=== PATIENT | male | born 1945 | race Caucasian/White ===

== ENCOUNTER 2017-05-19 08:00 | Outpatient (CLI) | payer MEDICARE ==
[2017-05-19 19:02] LABS: BASOPHILS # (AUTO) 0.1 10^3/uL (0.0-0.1); EOSINOPHILS # (AUTO) 0.3 10^3/uL (0.0-0.7); EOSINOPHILS % (AUTO) 3.8 %; HCT - HEMATOCRIT 40.3 % (42.0-52.0); HGB - HEMOGLOBIN 13.6 g/dL (14.0-18.0); MEAN CORPUSCULAR HEMOGLOBIN 31.9 pg (27.0-31.0); MEAN CORPUSCULAR HGB CONC 33.6 g/dL (32.0-36.0); MEAN CORPUSCULAR VOLUME 94.9 fL (80.0-94.0); MEAN PLATELET VOLUME 8.8 fL (7.4-11.4); MONOCYTES # (AUTO) 0.7 10^3/uL (0.0-1.0); MONOCYTES % (AUTO) 7.1 %; NEUTROPHILS # (AUTO) 7.1 10^3/uL (1.5-6.6); NEUTROPHILS % (AUTO) 77.1 %; RED BLOOD COUNT 4.25 10^6/uL (4.70-6.10); RED CELL DISTRIBUTION WIDTH 14.2 % (12.0-15.0); UNCORRECTED WHITE BLOOD COUNT 9.2 x10^3/uL; WHITE BLOOD COUNT 9.2 x10^3/uL (4.8-10.8)
[2017-05-19 19:24] LABS: ALBUMIN/GLOBULIN RATIO 1.3 (1.0-2.2); BILIRUBIN,TOTAL 0.5 mg/dL (0.2-1.0); CREATININE 0.9 mg/dL (0.6-1.2); POTASSIUM 3.7 mmol/L (3.5-5.0); TOTAL PROTEIN 6.8 g/dL (6.7-8.2)
[2017-05-19 19:43] LABS: H. PYLORI IGG ANTIBODY Negative (Negative); HPYLORI NEG QC Negative (Negative); HPYLORI POS QC POSITIVE (Positive)
== END 2017-05-19 08:01 | disposition home or self-care (01) ==
LOC: LAB.WCP 08:00
PROVIDERS: ATTEND Family Medicine
DX: Z72.0 Tobacco use (principal); R07.89 Other chest pain; R10.13 Epigastric pain
CPT/HCPCS: 36415; 80053; 83690; 85025; 87339

== ENCOUNTER 2019-03-08 08:00 | Outpatient (CLI) | payer MEDICARE ==
[2019-03-08 18:43] LABS: BASOPHILS # (AUTO) 0.1 10^3/uL (0.0-0.1); BASOPHILS % (AUTO) 1.2 %; EOSINOPHILS # (AUTO) 0.5 10^3/uL (0.0-0.7); EOSINOPHILS % (AUTO) 6.3 %; HGB - HEMOGLOBIN 14.9 g/dL (14.0-18.0); LYMPHOCYTES # (AUTO) 1.3 10^3/uL (1.5-3.5); LYMPHOCYTES % (AUTO) 16.9 %; MEAN CORPUSCULAR HEMOGLOBIN 31.8 pg (27.0-31.0); MEAN CORPUSCULAR HGB CONC 32.9 g/dL (32.0-36.0); MEAN CORPUSCULAR VOLUME 96.8 fL (80.0-94.0); MEAN PLATELET VOLUME 10.5 fL (7.4-11.4); MONOCYTES # (AUTO) 0.7 10^3/uL (0.0-1.0); MONOCYTES % (AUTO) 8.9 %; NEUTROPHILS % (AUTO) 66.4 %; PLT - PLATELET COUNT 197 10^3/uL (130-450); RED BLOOD COUNT 4.68 10^6/uL (4.70-6.10); RED CELL DISTRIBUTION WIDTH 13.8 % (12.0-15.0); WHITE BLOOD COUNT 7.5 x10^3/uL (4.8-10.8)
== END 2019-03-08 23:59 | disposition home or self-care (01) ==
LOC: LAB.WCP 08:00
PROVIDERS: ATTEND Family Medicine
DX: D64.9 Anemia, unspecified (principal); R10.9 Unspecified abdominal pain
CPT/HCPCS: 36415; 85025

== ENCOUNTER 2019-03-10 10:52 | Outpatient (CLI) | payer MEDICARE ==
[2019-03-10 19:07] LABS: ALBUMIN 4.2 g/dL (3.2-5.5); ALBUMIN/GLOBULIN RATIO 1.4 (1.0-2.2); BILIRUBIN,TOTAL 0.7 mg/dL (0.2-1.0); CALCIUM 9.4 mg/dL (8.5-10.3); CREATININE 0.7 mg/dL (0.6-1.2); TOTAL PROTEIN 7.2 g/dL (6.7-8.2)
== END 2019-03-10 23:59 | disposition home or self-care (01) ==
LOC: LAB.WCP 10:52
PROVIDERS: ATTEND Family Medicine
DX: R10.9 Unspecified abdominal pain (principal); D64.9 Anemia, unspecified
CPT/HCPCS: 36415; 80053; 82150; 83690

== ENCOUNTER 2019-03-14 13:41 | Outpatient (CLI) | payer MEDICARE ==
--- NOTE | 2019-03-15 17:07 | Ultrasound Report ---
Reason: ABDOMINAL PAIN, EPIGASTRIC PAIN Procedure Date: 03/14/2019 Accession Number: [id number] / [id number] Procedure: US - Abdomen Limited CPT Code: FULL RESULT: EXAM: ABDOMEN ULTRASOUND LIMITED, RUQ EXAM DATE: 03/14/2019 02:07 PM. CLINICAL HISTORY: Abdominal pain. Epigastric pain. COMPARISON: None. TECHNIQUE: Real-time scanning was performed with static images obtained. FINDINGS: Liver: Normal in size and echotexture. Multiple subcentimeter cysts noted. 12.5 cm. Main portal vein flow: Hepatopetal. Gallbladder: Normal. No stones, wall thickening, or sonographic Smyth's sign. Biliary System: CBD measures 4 mm. Undulating smooth wall thickening noted in the common bile duct. Other: The visualized pancreas and right kidney are unremarkable. No free fluid. IMPRESSION: 1. No cholelithiasis or cholecystitis. 2. Wall thickening noted in the common bile duct, which can be seen with cholangitis. RADIA
== END 2019-03-14 13:42 | disposition home or self-care (01) ==
LOC: DI 13:41
PROVIDERS: ATTEND Family Medicine
DX: R10.9 Unspecified abdominal pain (principal); R10.13 Epigastric pain
CPT/HCPCS: 76705

== ENCOUNTER 2020-01-11 05:45 | Emergency (ER) | payer OTHER, MEDICARE ==
--- NOTE | 2020-01-11 05:52 | ED Physician Documentation ---
PD HPI SKIN - Stated complaint Stated Complaint: HAND PX/RASH - History obtained from History obtained from: Patient - History of Present Illness Timing - onset: How many months ago (1) Timing - duration: Months (1) Timing - details: Gradual onset, Waxing and waning (The patient has a rash on both hands mainly on the dorsal aspect and fingers for the last month. It was gradual in onset. He noticed it initially being irritated at work. 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 He has had the same types of gloves for use and believes they are nitrile. They had changed some of the chemical nursing home director within the last 1 to 2 months and he feels that it is irritating his skin. He has not had any rash in other areas. He was seen by his primary care and prescribed a capsule and told to use some topical ointment. He states he got slightly better with those but not resolved and has lingered on and worsened now in the last several days to a week. There is some weeping drainage mainly on the dorsal aspects.) Quality / character: Itchy, Painful, Discolored (red), Swelling, Draining (weeping clear fluid the past several days) Associated symptoms: No: Fever, Myalgias Contributing factors: Other (The patient associates the onset of the rash and itchiness with the change of chemicals at work about a month ago.) Similar symptoms before: Has not had sx before Recently seen: Clinic (The patient was prescribed a capsule medication a states was 4 times a day. He is not sure of the name of it. He believes it was an antibiotic. He does not believe he was prescribed any steroid or anti- inflammatories) Review of Systems Constitutional: denies: Fever, Chills Nose: denies: Rhinorrhea / runny nose, Congestion Throat: denies: Oral lesions / sores, Sore throat Respiratory: denies: Dyspnea, Cough GI: denies: Nausea, Vomiting PD PAST MEDICAL HISTORY - Past Medical History Past Medical History: No - Past Surgical History HEENT: Cataracts - Present Medications Home Medications: Ambulatory Orders Medication Instructions Recorded Confirmed Folic Acid 1 mg PO DAILY 08/12/15 08/12/15 Clotrimazole/Betamethasone Crm 1 applic TOP TID 7 Days #1 tube 01/11/20 [Lotrisone Cream] Doxycycline Monohydrate 100 mg PO BID #14 tablet 01/11/20 dexAMETHasone [Decadron] 4 mg PO DAILY #5 tablet 01/11/20 hydrOXYzine HCL [Hydroxyzine HCl] 25 mg PO TID PRN #20 tablet 01/11/20 - Allergies Allergies/Adverse Reactions: Allergies Allergy/AdvReac Type Severity Reaction Status Date / Time No Known Drug Allergies Allergy Verified 01/11/20 05:53 PD ED PE NORMAL - Vitals Vital signs reviewed: Yes - General General: Alert and oriented X 3, Well developed/nourished - HEENT HEENT: Pharynx benign - Neck Neck: Supple, no meningeal sign, No adenopathy - Cardiac Cardiac: RRR, No murmur - Respiratory Respiratory: Clear bilaterally - Derm Derm: Other (The fingers and dorsum of both hands show a significant rash with some's superficial excoriation primarily on the backs of the hands. This redness extends up to the distal forearms on both sides. There is sparing of the palms of both hands. There is no obvious purulence. There is some weeping clear fluid from the dorsum of the left hand primarily. The skin is reddened with inflammation and there is swelling of the fingers on both hands.) - Neuro Neuro: No motor deficit, No sensory deficit Results - Vitals Vitals: Vital Signs - 24 hr 01/11/20 05:54 Temperature 36.5 C Heart Rate 91 Respiratory 18 Rate Blood Pressure 164/86 H O2 Saturation 99 Oxygen O2 Source Room air PD MEDICAL DECISION MAKING - ED course Complexity details: considered differential (I presume the initial processes a dermatitis but there now appears likely to be some infection to it. We will treat with anti-amatory days as well as antibiotic. He was given Decadron orally and a topical steroid with antifungal for consideration of fungal versus bacterial secondary infection to the dermatitis. Cultures obtained at the back of the hand clear fluid), d/w patient Departure - Departure Disposition: 01 Home, Self Care Clinical Impression: Hand dermatitis Condition: Stable Record reviewed to determine appropriate education?: Yes Instructions: ED Dermatitis Non Specific Rash Follow-Up: Emilio Hooker MD [Primary Care Provider] - [facility] [Provider Group] Prescriptions: Clotrimazole/Betamethasone Crm [Lotrisone Cream] 1 applic TOP TID 7 Days #1 tube dexAMETHasone [Decadron] 4 mg PO DAILY #5 tablet Doxycycline Monohydrate 100 mg PO BID #14 tablet hydrOXYzine HCL [Hydroxyzine HCl] 25 mg PO TID PRN #20 tablet PRN Reason: Itching Comments: We will treat as potential infection as well as chemical dermatitis. Doxycycline oral antibiotic twice daily for a week. Lotrisone topical which is a steroid with an antimicrobial. Decadron oral steroid. I also prescribed hydroxyzine for itching. Recheck over the next several days to week. I wrote for a work note for 3 days to allow less irritation of the hands while they are trying to get better. Forms: Activity restrictions Discharge Date/Time: 01/11/20 07:03
[2020-01-11 06:05] VITALS: BP 164/86
[2020-01-11] MEDS ORDERED: diphenhydrAMINE 25 MG CAPSULE PO STA (06:24)
[2020-01-11] MEDS ORDERED: MUPIROCIN 2% OINT 1 GM TOP STA (06:24)
[2020-01-11] MEDS ORDERED: DEXAMETHASONE 10 MG/ML VIAL PO STA (06:24)
[2020-01-11] MEDS ORDERED: CHERRY SYRUP 10 ML UDC PO ONE (06:24)
[2020-01-11] MEDS ORDERED: DOXYCYCLINE 100 MG TABLET PO STA (06:24)
[2020-01-11] MEDS ORDERED: CETIRIZINE 10 MG TABLET PO STA (06:24)
== END 2020-01-11 07:03 | disposition home or self-care (01) ==
LOC: ED 05:45
DX: T55.1X1A Toxic effect of detergents, accidental (unintentional), initial encounter (principal); L24.0 Irritant contact dermatitis due to detergents; Y93.E9 Activity, other interior property and clothing maintenance; Y92.138 Other place on military base as the place of occurrence of the external cause; Y99.0 Civilian activity done for income or pay
CPT/HCPCS: 1040M; 87070; 87181; 87205; 99283; 99284; A9270

== ENCOUNTER 2020-02-14 05:07 | Emergency (ER) | payer MEDICARE ==
[2020-02-14] MEDS ORDERED: DEXAMETHASONE 10 MG/ML VIAL PO STA (05:55)
[2020-02-14] MEDS ORDERED: CHERRY SYRUP 10 ML UDC PO ONE (05:55)
[2020-02-14] MEDS ORDERED: DOXYCYCLINE 100 MG TABLET PO STA (05:55)
[2020-02-14] MEDS ORDERED: hydrOXYzine PAMOATE 25 MG CAPSULE PO STA (05:55)
--- NOTE | 2020-02-14 05:55 | ED Physician Documentation ---
History of Present Illness - Stated complaint Stated Complaint: SKIN IRRITATION/LEG SWELLING - Chief complaint Chief Complaint: Allergic Rx - History obtained from History obtained from: Patient (Patient is a 74-year-old male who presents with chief complaint of skin rash that is diffuse on bilateral arms and legs he has an appointment at 8:00 this morning with a physician but came here first for an additional opinion.He denies feversDenies weight loss. He is asking for refill of his), Other (Doxycycline, betamethasone, DecadronAnd clotrimazole.) Review of Systems Constitutional: reports: Reviewed and negative Eyes: reports: Reviewed and negative Ears: reports: Reviewed and negative Nose: reports: Reviewed and negative Throat: reports: Reviewed and negative Cardiac: reports: Reviewed and negative Respiratory: reports: Reviewed and negative GI: reports: Reviewed and negative : reports: Reviewed and negative Skin: reports: Rash Musculoskeletal: reports: Reviewed and negative Neurologic: reports: Reviewed and negative Psychiatric: reports: Reviewed and negative Endocrine: reports: Reviewed and negative Immunocompromised: reports: Reviewed and negative PD PAST MEDICAL HISTORY - Past Medical History Derm: Other - Past Surgical History Past Surgical History: No HEENT: Cataracts - Present Medications Home Medications: Ambulatory Orders Medication Instructions Recorded Confirmed Folic Acid 1 mg PO DAILY 08/12/15 08/12/15 Clotrimazole/Betamethasone Crm 1 applic TOP TID 7 Days #1 tube 01/11/20 [Lotrisone Cream] Doxycycline Monohydrate 100 mg PO BID #14 tablet 01/11/20 dexAMETHasone [Decadron] 4 mg PO DAILY #5 tablet 01/11/20 hydrOXYzine HCL [Hydroxyzine HCl] 25 mg PO TID PRN #20 tablet 01/11/20 Cephalexin [Keflex] 500 mg PO QID #30 capsule 02/14/20 Mupirocin [Centany] 30 gm TP TID #1 oint...g. 02/14/20 hydrOXYzine HCL [Hydroxyzine HCl] 25 mg PO BID PRN #10 tablet 02/14/20 - Allergies Allergies/Adverse Reactions: Allergies Allergy/AdvReac Type Severity Reaction Status Date / Time No Known Drug Allergies Allergy Verified 01/11/20 05:53 - Social History Does the pt smoke?: Yes Smoking Status: Current every day smoker Does the pt drink ETOH?: Yes Does the pt have substance abuse?: No - Immunizations Immunizations are current?: No - POLST Patient has POLST: No PD ED PE NORMAL - Vitals Vital signs reviewed: Yes - General General: Alert and oriented X 3, No acute distress, Well developed/nourished - HEENT HEENT: PERRL - Neck Neck: Supple, no meningeal sign - Cardiac Cardiac: RRR, No murmur - Respiratory Respiratory: Clear bilaterally - Abdomen Abdomen: Normal bowel sounds, Soft, Non tender, Non distended - Derm Derm: Other (There is a diffuse rash on bilateral arms and legs with erythema and surrounded areas of honey crusted lesions with multiple fissures and scaling at different stages of healing. Compartments are soft sensations intact to light touch neurovascularly intact.) - Extremities Extremities: No deformity - Neuro Neuro: Alert and oriented X 3 - Psych Psych: Normal mood, Normal affect Results - Vitals Vitals: Vital Signs - 24 hr 02/14/20 05:28 Temperature 36.2 C L Heart Rate 84 Respiratory 16 Rate Blood Pressure 149/74 H O2 Saturation 100 Oxygen O2 Source Room air - Labs Labs: Laboratory Tests 02/14/20 02/14/20 06:15 06:15 WBC 6.3 RBC 4.49 L Hgb 14.4 Hct 42.3 MCV 94.2 H MCH 32.1 H MCHC 34.0 RDW 13.9 Plt Count 223 MPV 9.5 Neut # (Auto) 4.6 Lymph # (Auto) 0.6 L [place] # (Auto) 0.8 Eos # (Auto) 0.2 Baso # (Auto) 0.1 Absolute Nucleated RBC 0.00 Nucleated RBC % 0.0 Sodium 136 Potassium 4.2 Chloride 103 Carbon Dioxide 25 Anion Gap 8.0 BUN 11 Creatinine 0.7 Estimated GFR (MDRD) 111 Glucose 136 H Calcium 8.0 L Total Bilirubin 0.3 AST 24 ALT 17 Alkaline Phosphatase 68 Total Protein 5.9 L Albumin 3.3 Globulin 2.6 Albumin/Globulin Ratio 1.3 Lipase 31 PD MEDICAL DECISION MAKING - ED course Complexity details: considered differential (Dermatitis, impetigo, cellulitis, ichthyosis vulgaris) Departure - Departure Disposition: 01 Home, Self Care Clinical Impression: Skin irritation Contact dermatitis Qualifiers: Contact dermatitis type: unspecified Contact dermatitis trigger: unspecified trigger Qualified Code(s): L25.9 - Unspecified contact dermatitis, unspecified cause Condition: Stable Instructions: Impetigo, ED Dermatitis Contact Follow-Up: Emilio Hooker MD [Primary Care Provider] - 02/14/20 Prescriptions: Mupirocin [Centany] 30 gm TP TID #1 oint...g. hydrOXYzine HCL [Hydroxyzine HCl] 25 mg PO BID PRN #10 tablet PRN Reason: Itching Cephalexin [Keflex] 500 mg PO QID #30 capsule Comments: Follow-up with your primary care provider today as scheduled.
[2020-02-14] MEDS ORDERED: TRIAMCINOLONE 0.1% CREAM 15 GM TUBE TOP SCH (06:00)
[2020-02-14 06:25] LABS: BASOPHILS # (AUTO) 0.1 10^3/uL (0.0-0.1); BASOPHILS % (AUTO) 0.8 %; EOSINOPHILS # (AUTO) 0.2 10^3/uL (0.0-0.7); HGB - HEMOGLOBIN 14.4 g/dL (14.0-18.0); LYMPHOCYTES # (AUTO) 0.6 10^3/uL (1.5-3.5); LYMPHOCYTES % (AUTO) 9.2 %; MEAN CORPUSCULAR HEMOGLOBIN 32.1 pg (27.0-31.0); MEAN CORPUSCULAR VOLUME 94.2 fL (80.0-94.0); MEAN PLATELET VOLUME 9.5 fL (7.4-11.4); MONOCYTES # (AUTO) 0.8 10^3/uL (0.0-1.0); NEUTROPHILS # (AUTO) 4.6 10^3/uL (1.5-6.6); NEUTROPHILS % (AUTO) 72.9 %; PLT - PLATELET COUNT 223 10^3/uL (130-450); RED BLOOD COUNT 4.49 10^6/uL (4.70-6.10); RED CELL DISTRIBUTION WIDTH 13.9 % (12.0-15.0); WHITE BLOOD COUNT 6.3 x10^3/uL (4.8-10.8)
[2020-02-14 06:34] LABS: ALBUMIN 3.3 g/dL (3.2-5.5); ALBUMIN/GLOBULIN RATIO 1.3 (1.0-2.2); BILIRUBIN,TOTAL 0.3 mg/dL (0.2-1.0); CREATININE 0.7 mg/dL (0.6-1.2); TOTAL PROTEIN 5.9 g/dL (6.7-8.2)
[2020-02-14 06:53] VITALS: BP 131/59
== END 2020-02-14 06:54 | disposition home or self-care (01) ==
LOC: ED 05:07
DX: L25.9 Unspecified contact dermatitis, unspecified cause (principal); F17.200 Nicotine dependence, unspecified, uncomplicated
CPT/HCPCS: 36415; 80053; 83690; 85025; 99283; A9270

== ENCOUNTER → 2020-08-13 | Outpatient (CLI) | payer MEDICARE ==
--- NOTE | 2020-08-13 17:52 | XRAY Report ---
PROCEDURE: Chest 2 View X-Ray INDICATIONS: POSITIVE PPD TECHNIQUE: 2 view(s) of the chest. COMPARISON: None. FINDINGS: Surgical changes and devices: None. Lungs and pleura: No pleural effusions or pneumothorax. Lungs are clear. Lungs are hyperinflated piper ggesting COPD. Mediastinum: There is prominence of the descending aorta and proximal aortic arch concerning for aneu rysm. Heart size is normal. Bones and chest wall: No suspicious bony abnormalities. Soft tissues appear unremarkable. IMPRESSION: 1. No acute cardiopulmonary disease process. 2. Possible descending thoracic aorta and proximal aortic arch aneurysm. Recommend CT scan of the ashtyn st with contrast for definitive characterization. Reviewed by: Arleen Morales MD, PhD on 08/13/2020 5:51 PM PST Approved by: Arleen Morales MD, PhD on 08/13/2020 5:51 PM PST Station ID: [id number]
== END ==
LOC: DI.WCP 09:02
PROVIDERS: ATTEND Family Medicine
DX: R76.11 Nonspecific reaction to tuberculin skin test without active tuberculosis (principal)

== ENCOUNTER 2020-08-27 14:12 | Outpatient (CLI) | payer MEDICARE ==
[2020-08-27] MEDS ORDERED: IOVERSOL 320 100 ML VIAL IVP ONE ×2 (14:59→15:15)
--- NOTE | 2020-08-27 15:22 | CT Report ---
PROCEDURE: ANGIO CHEST W/WO INDICATIONS: AGNORMAL CHEST XRAY, HX OF POSITIVE PPD CONTRAST: IV CONTRAST: Optiray 320 ml: 80 PO CONTRAST: *NO PO CONTRAST TECHNIQUE: After the administration of intravenous contrast, 2 mm thick sections acquired from the pulmonary api salty to the posterior costophrenic angles. 3-dimensional maximum intensity projection (MIP) coronal a nd sagittal reformats were then acquired through the thorax. For radiation dose reduction, the follow ing was used: automated exposure control, adjustment of mA and/or kV according to patient size. COMPARISON: Chest x-ray dated 08/13/2020 FINDINGS: Image quality: Excellent. Pulmonary arteries: Pulmonary arteries are normal in size, and demonstrate no intraluminal filling d efects to suggest central pulmonary embolism. Lungs and pleura: Lungs are clear. Moderate apical predominant emphysema. Calcified scarring at the left apex. Multiple noncalcified nodular densities within the left apex are present, largest of whic h is in the anterior apex, measuring 7 mm diameter (series 7 image 48). Noncalcified nodular density within the anteromedial aspect of the right upper lobe measuring 7 mm. Scarring within the bilateral lung bases. No pleural effusions or pneumothorax. Central and peripheral airways are patent. Mediastinum: Heart size is normal, without pericardial effusion. Moderate calcification of the liana nary vasculature. No mediastinal or hilar adenopathy. Thoracic aorta is normal in caliber and enhanc ement. Mild diffuse plaque within the thoracic aorta without evidence of dissection, aneurysm, nor si gnificant stenosis. Esophagus is normal in caliber, without hiatal hernia. Bones and chest wall: No suspicious bony lesions. Ribs and thoracic spine appear intact throughout. The thyroid is normal. No axillary or supraclavicular adenopathy. Abdomen: Visualized upper abdominal solid organs appear normal in the early arterial phase of enhanc ement. IMPRESSION: 1. Mild diffuse thoracic aortic plaque, without evidence of aneurysm, nor dissection. No significant aortic stenosis. 2. Coronary artery disease. 3. Emphysema. 4. Bilateral pulmonary nodular densities as described above. Initial further assessment with PET/CT e xamination is recommended. Reviewed by: Whitney Calle MD on 08/27/2020 3:21 PM PST Approved by: Whitney Calle MD on 08/27/2020 3:21 PM PST Station ID: [id number]
== END 2020-08-27 14:13 | disposition home or self-care (01) ==
LOC: LAB 14:12 → DI 14:13
PROVIDERS: ATTEND Internal Medicine
DX: I70.0 Atherosclerosis of aorta (principal); I25.10 Atherosclerotic heart disease of native coronary artery without angina pectoris; J43.9 Emphysema, unspecified; R91.8 Other nonspecific abnormal finding of lung field; Z86.15 Personal history of latent tuberculosis infection
CPT/HCPCS: 36415; 71275; 80048; Q9967

== ENCOUNTER 2020-08-27 14:17 | Outpatient (CLI) | payer MEDICARE ==
[2020-08-27 14:43] LABS: CALCIUM 9.2 mg/dL (8.5-10.3); CREATININE 0.8 mg/dL (0.6-1.2)
== END 2020-08-27 14:18 | disposition home or self-care (01) ==
LOC: LAB 14:17
PROVIDERS: ATTEND Internal Medicine
DX: R91.8 Other nonspecific abnormal finding of lung field (principal); Z86.15 Personal history of latent tuberculosis infection
CPT/HCPCS: 36415; 80048

== ENCOUNTER 2022-04-25 09:14 | Outpatient (CLI) | payer MEDICARE ==
--- NOTE | 2022-04-25 10:44 | CT Report ---
PROCEDURE: CHEST WO INDICATIONS: LUNG NODULES TECHNIQUE: Noncontrast 1mm axial images were acquired from the pulmonary apices to the posterior costophrenic an gles. Axial 5 mm soft tissue kernel reconstructions were performed as well as 8 mm axial MIP and cor onal and sagittal 5 mm reformations. For radiation dose reduction, the following was used: automate d exposure control, adjustment of mA and/or kV according to patient size. COMPARISON: 08/27/2020 FINDINGS: Image quality: Excellent. Lungs and pleura: Multiple pulmonary nodules are again seen, which are worst within the left upper l obe. The largest solitary left upper lobe nodule is seen at the apex on series 434 measuring 8 x 6 mm . Within the uptake millimeters. These nodules are overall increased in prominence compared to 021. Within the right middle lobe, additional nodules are seen that measure up to 5 mm. These nodules overall mildly increased in prominence compared to the 08/27/2020 examination. Centrilobular emphysematous changes are seen, which are more prominent at the lung apices than at the lung bases. No pleural effusions or pneumothorax. Central and peripheral airways are patent and normal in calibe r. Mediastinum: Heart size is normal. No pericardial effusion. No mediastinal adenopathy by size crit eria. Thoracic aorta and central pulmonary arteries are normal in size. Atherosclerotic calcificatio n is seen. Moderate coronary artery calcification is seen. Esophagus is normal in caliber. No hiatal hernia. Bones and chest wall: No suspicious bony lesions. No vertebral body compression fractures. No axil radha or supraclavicular adenopathy by size criteria. The thyroid is normal in size and there are no incidental findings. Abdomen: Visualized upper abdominal solid organs and bowel loops appear normal in the absence of con trast. IMPRESSION: Pulmonary nodules are seen, which are worst involving the left upper lobe, with the largest solitary nodule measuring 8 mm. Please consider additional investigation with PET CT. Underlying centrilobular emphysematous changes are seen. Incidental note is made of: Moderate coronary artery calcification Reviewed by: Mack Valles MD on 04/25/2022 9:42 AM FRANCISCO J Approved by: Mack Valles MD on 04/25/2022 9:42 AM FRANCISCO J Station ID: [id number]
== END 2022-04-25 09:15 | disposition home or self-care (01) ==
LOC: DI 09:14
PROVIDERS: ATTEND Internal Medicine
DX: R91.8 Other nonspecific abnormal finding of lung field (principal); J43.2 Centrilobular emphysema

== ENCOUNTER 2022-04-29 09:41 | Outpatient (CLI) | payer MEDICARE ==
[2022-04-29 12:09] LABS: INR 0.9 (0.8-1.2); PT - PROTHROMBIN TIME 10.3 secs (9.9-12.6)
[2022-04-30 03:08] LABS: HEPATITIS BE ANTIGEN Negative (Negative)
[2022-05-01 10:09] LABS: HEPATITIS BE ANTIBODY Positive (Negative)
== END 2022-04-29 09:42 | disposition home or self-care (01) ==
LOC: LAB.N 09:41
PROVIDERS: ATTEND Internal Medicine
DX: Z12.11 Encounter for screening for malignant neoplasm of colon (principal); Z12.5 Encounter for screening for malignant neoplasm of prostate; Z22.7 Latent tuberculosis; R91.8 Other nonspecific abnormal finding of lung field
CPT/HCPCS: 36415; 82105; 85610; 86692; 86707; 87350; 87517; G0103; 81599; 84153

== ENCOUNTER 2023-01-21 14:48 | Outpatient (CLI) | payer MEDICARE ==
[2023-01-21 18:12] LABS: BASOPHILS # (AUTO) 0.1 10^3/uL (0.0-0.1); EOSINOPHILS # (AUTO) 0.3 10^3/uL (0.0-0.7); EOSINOPHILS % (AUTO) 4.3 %; HCT - HEMATOCRIT 39.4 % (42.0-52.0); HGB - HEMOGLOBIN 13.2 g/dL (14.0-18.0); LYMPHOCYTES # (AUTO) 0.8 10^3/uL (1.5-3.5); LYMPHOCYTES % (AUTO) 11.7 %; MEAN CORPUSCULAR HEMOGLOBIN 31.1 pg (27.0-31.0); MEAN CORPUSCULAR HGB CONC 33.5 g/dL (32.0-36.0); MEAN CORPUSCULAR VOLUME 92.7 fL (80.0-94.0); MEAN PLATELET VOLUME 9.5 fL (7.4-11.4); MONOCYTES # (AUTO) 0.4 10^3/uL (0.0-1.0); MONOCYTES % (AUTO) 6.1 %; NEUTROPHILS # (AUTO) 5.2 10^3/uL (1.5-6.6); NEUTROPHILS % (AUTO) 76.5 %; PLT - PLATELET COUNT 313 10^3/uL (130-450); RED BLOOD COUNT 4.25 10^6/uL (4.70-6.10); RED CELL DISTRIBUTION WIDTH 13.1 % (12.0-15.0); WHITE BLOOD COUNT 6.8 x10^3/uL (4.8-10.8)
[2023-01-21 18:22] LABS: ALBUMIN 3.7 g/dL (3.2-5.5); ALBUMIN/GLOBULIN RATIO 1.1 (1.0-2.2); ALKALINE PHOSPHATASE 75 IU/L (42-121); ALT ALANINE AMINOTRANSFERASE 17 IU/L (10-60); AST ASPARTATE AMINOTRANSFERASE 22 IU/L (10-42); BILIRUBIN,TOTAL 0.5 mg/dL (0.2-1.0); BUN - BLOOD UREA NITROGEN 11 mg/dL (6-20); CARBON DIOXIDE - CO2 31 mmol/L (21-32); CHLORIDE 100 mmol/L (101-111); CHOL/HDL RATIO 2.1 (<5.0); CHOLESTEROL 193 mg/dL; CREATININE 0.7 mg/dL (0.6-1.2); GFR - MDRD 110 (>89); GLUCOSE 149 mg/dL (70-100); HDL CHOLESTEROL 90 mg/dL; LDL CHOLESTEROL,CALCULATED 89 mg/dL; POTASSIUM 3.6 mmol/L (3.5-5.0); SODIUM 136 mmol/L (135-145); TOTAL PROTEIN 7.1 g/dL (6.7-8.2); TRIGLYCERIDES 69 mg/dL; VLDL CHOLESTEROL 14 mg/dL
[2023-01-23 07:09] LABS: AFP SERUM TUMOR MARKER 4.5 ng/mL (0.0-8.4)
[2023-01-26 15:08] LABS: A/G RATIO 1.2 (0.7-1.7); ALBUMIN 3.6 g/dL (2.9-4.4); ALPHA-1-GLOBULIN 0.3 g/dL (0.0-0.4); ALPHA-2-GLOBULIN 0.8 g/dL (0.4-1.0); GAMMA GLOBULIN 1.2 g/dL (0.4-1.8); GLOBULIN TOTAL 3.2 g/dL (2.2-3.9); IMMUNOGLOBULIN A (IGA) 193 mg/dL (61-437); IMMUNOGLOBULIN G (IGG) 1093 mg/dL (603-1613); IMMUNOGLOBULIN M (IGM) 137 mg/dL (15-143); M-SPIKE Not Observed g/dL (Not Observed); PROTEIN TOTAL 6.8 g/dL (6.0-8.5)
== END 2023-01-21 14:49 | disposition home or self-care (01) ==
LOC: LAB.N 14:48
PROVIDERS: ATTEND Internal Medicine
DX: L20.89 Other atopic dermatitis (principal); Z22.7 Latent tuberculosis; Z13.220 Encounter for screening for lipoid disorders; R97.20 Elevated prostate specific antigen [PSA]
CPT/HCPCS: 36415; 80053; 80061; 82105; 82784; 83721; 84153; 84155; 84165; 85025; 85610; 86334